=== PATIENT | female | born 1980 | race Caucasian/White ===

== ENCOUNTER 2016-10-25 10:16 | Inpatient (IN) | payer SELFPAY ==
[~2016-10-25] VITALS: Ht 160 cm; Wt 52.3 kg
[~2016-10-25 10:16] MED LIST: FERR325T PO; IRON28TA PO
[2016-10-25 10:17] VITALS: BP 149/79; PULSE 115; RESP 16; TEMP 98.1; O2SAT 98
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
[2016-10-25 12:12] VITALS: BP 122/76; PULSE 87; RESP 18; TEMP 98; O2SAT 96
[2016-10-25 12:33] LABS: AUTOMATED NEUTROPHIL # 9.6 TH/MM3 (1.8-7.7); BASOPHIL # 0.1 TH/MM3 (0-0.2); BASOPHIL % 0.5 % (0.0-2.0); EOSINOPHIL % 0.3 % (0.0-4.0); HEMATOCRIT 38.6 % (35.0-46.0); HEMO FLAGS DIFF FINAL; LYMPH % 14.6 % (9.0-44.0); LYMPHOCYTE # 1.8 TH/MM3 (1.0-4.8); MEAN CELL VOLUME 83.2 FL (80.0-100.0); MEAN CORPUSCULAR HEMOGLOBIN 27.7 PG (27.0-34.0); MEAN CORPUSCULAR HGB CONC 33.2 % (32.0-36.0); MONO % 6.6 % (0.0-8.0); PLATELET COUNT 235 TH/MM3 (150-450); RED BLOOD COUNT 4.64 MIL/MM3 (4.00-5.30); RED CELL DISTRIBUTION WIDTH 14.1 % (11.6-17.2); WHITE BLOOD COUNT 12.4 TH/MM3 (4.0-11.0)
[2016-10-25 13:03] LABS: ALT (GPT) 60 U/L (10-53); ANION GAP 8 MEQ/L (5-15); AST (GOT) 23 U/L (15-37); BLOOD UREA NITROGEN 11 MG/DL (7-18); CHLORIDE 101 MEQ/L (98-107); GLOMERULAR FILTRATION RATE 83 ML/MIN (>89); POTASSIUM 3.7 MEQ/L (3.5-5.1); SODIUM (NA) 137 MEQ/L (136-145)
[2016-10-25 13:06] LABS: ALKALINE PHOSPHATASE 99 U/L (45-117); TOTAL BILIRUBIN ADULT 0.6 MG/DL (0.2-1.0)
[2016-10-25 15:02] LABS: BLOOD, URINE NEG (NEG); COMMENT (UR) CULTURE INDICATED; CULTURE IF INDICATED CULTURE INDICATED; GLUCOSE,URINE NEG (NEG); KETONE, URINE 40 mg/dL (NEG); MUCUS URINE FEW /lpf (OCC); NITRITE,URINE NEG (NEG); SQUAMOUS EPITHELIAL CELL URINE 18 /hpf (0-5); URINE COLOR YELLOW (YELLW/STRAW)
[2016-10-25 17:56] LABS: AMPHETAMINE, URINE NEG (NEG); BARBITURATES, URINE NEG (NEG); COCAINE, URINE POS (NEG)
[2016-10-25 18:13] VITALS: BP 132/64; PULSE 68; RESP 18; O2SAT 98
[2016-10-25] MEDS ORDERED: CEPHALEXIN MONOHYDRATE 500 MG CAP PO ONE (19:15)
[2016-10-25 22:00] VITALS: BP 112/55; PULSE 55; RESP 20; O2SAT 98
[2016-10-26 02:09] VITALS: BP 113/66; PULSE 59; RESP 18
[2016-10-26 06:32] VITALS: BP 112/66; PULSE 59; RESP 18; O2SAT 99
[2016-10-26] MEDS: FLUoxetine HCL 20 MG CAP PO SCH (09:05)
[2016-10-26] MEDS ORDERED: diphenhydrAMINE HCL 50 MG/ML VIAL IM PRN (09:15)
[2016-10-26] MEDS ORDERED: ALUMINUM/MAGNESIUM/SIMETH 30 ML CUP PO PRN (09:15)
[2016-10-26] MEDS ORDERED: MAGNESIUM HYDROXIDE SUSP 30 ML CUP PO PRN (09:15)
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
[2016-10-26 10:24] VITALS: BP 128/83; PULSE 75; RESP 16; TEMP 98; O2SAT 98
[2016-10-26 12:27] LABS: BHCG SCREEN QUALITATIVE LESS THAN 1 MIU/ML (0-5)
--- NOTE | 2016-10-26 15:13 | PD.CONS ---
HPI Service [facility] Consult Requested By Psychiatry team Reason for Consult Medical management seizure, hypertension Primary Care Physician No Primary Care Physician Diagnoses: History of Present Illness Patient is a 36 year old white female with primary medical history of seizure, hypertension who came in to the ED with depression and suicidal thoughts. She is now admitted to inpatient psychiatry for further evaluation. Consulted for medical management. Patient states she was diagnosed with seizure in 2010. During such time, he was seeing Dr. Caputo in [place] and was placed on Janey beginning but states it did not work and switch her over to Klonopin 0.5 mg twice a day. Patient's last seizure reported was about a year ago. She also states that she was diagnosed with hypertension but is not taking any medications for it. States that when she came into the hospital and all throughout checking her vital signs her blood pressure remained within normal. In the ED, her urine showed moderate leukoesterase, 17 urine WBC, rare urine yeast, pending cultures. Denies pain and discomfort. Denies SOB/ dyspnea. Denies chestpain, palpitations, headaches, dizziness. Denies fevers, chills, n/v/d. Review of Systems Other Negative except for what is noted on history of present illness. Past Family Social History Allergies: Coded Allergies: Buspar (Verified Allergy, Severe, 10/25/16) Cogentin (Verified Allergy, Severe, hives, 10/25/16) Magnesium Sulfate (Verified Allergy, Severe, Vertigo, 10/25/16) [place] (Verified Allergy, Severe, hives, 10/25/16) Phenergan (Verified Allergy, Severe, 10/25/16) Risperdal (Verified Allergy, Severe, 10/25/16) Past Medical History Seizure HTN Depression CVA? Left-sided weakness residual Hypothyroidism Past Surgical History Appendectomy Cholecystectomy Heart catheter for mitral valve prolapse Tubal ligation Reported Medications Denies alcohol use Current smoker half a pack a day Substance use marijuana Active Ordered Medications Iron (Ferrous Sulfate) 325 Mg Tab 325 Mg PO DAILY 30 Days Family History ROM at age 50 for heart attack, grandmother at age 40 heart attack Social History Admits to alcohol use occasionally Current smoker half a pack a day Substance use marijuana Physical Exam Vital Signs Vital Signs Date Time Temp Pulse Resp B/P Pulse Ox O2 Delivery O2 Flow Rate FiO2 10/26/16 10:24 98.0 75 16 128/83 98 10/26/16 06:32 59 18 112/66 99 Room Air 10/26/16 02:09 59 18 113/66 10/25/16 22:00 55 20 112/55 98 Room Air 10/25/16 18:13 68 18 132/64 98 Physical Exam GENERAL: This is a well-nourished, well-developed patient, in no apparent distress. SKIN: No rashes, ecchymoses or lesions. Cool and dry. HEAD: Atraumatic. Normocephalic. No temporal or scalp tenderness. EYES: Pupils equal round and reactive. Extraocular motions intact. No scleral icterus. No injection or drainage. ENT: Nose without bleeding. Throat without erythema. Uvula midline. Airway patent. NECK: Trachea midline. No JVD or lymphadenopathy. Supple, nontender, no meningeal signs. CARDIOVASCULAR: Regular rate and rhythm without murmurs, gallops, or rubs. RESPIRATORY: Clear to auscultation. Breath sounds equal bilaterally. No wheezes , rales, or rhonchi. GASTROINTESTINAL: Abdomen soft, non-tender, nondistended. No guarding. Bowel sounds active 4 MUSCULOSKELETAL: Extremities without clubbing, cyanosis, or edema. No joint tenderness, effusion, or edema noted. No calf tenderness. Negative Homans sign bilaterally. NEUROLOGICAL: Awake and alert. Motor and sensory grossly within normal limits. Normal speech. Laboratory Date/Time Procedure Status Source Growth 10/25/16 14:10 Urine Culture - Preliminary Resulted Urine Random Urine IMMATURE GROWTH - REINCUBATE Result Diagram: 10/25/16 1158 10/25/16 1158 Assessment and Plan Problem List: (1) Major depressive disorder, recurrent severe without psychotic features ICD Code: F33.2 Status: Acute (2) HTN (hypertension) ICD Code: I10 Status: Chronic (3) Seizure disorder ICD Code: G40.909 Status: Chronic Assessment and Plan Patient is a 36 year old white female with primary medical history of seizure, hypertension who came in to the ED with depression and suicidal thoughts. She is now admitted to inpatient psychiatry for further evaluation. Consulted for medical management. Major depressive disorder - managed by psychiatry team HTN - vital signs trend since admit within normal. Continue to monitor. Patient not on any home meds for HTN. Tobacco use - counseled. Nicotine patch - Discuss significant family history of heart disease and smoking can put her at increased risk. We'll check lipid profile. Seizure disorder - start Klonopin 0.5 mg Q8hrs. Patient was on Klonopin per her outpatient neurologist. - Seizure precaution Urinary tract infection - DC Keflex. Start Macrobid. Follow-up cultures. Labs reviewed leukocytosis, WBC 12.4. Random glucose 159, EGFR 83, ALT 60. We' ll follow up repeat labs. CBC, CMP, hemoglobin A1c, lipid profile. Thank you for this consultation. We will follow patient with you. Written by Lorie Parra, acting as scribe for Dr. Chu on 10/26/16 at 13:11. The documentation accurately reflects the work performed [id number] by me on at 13:11 Code Status Full code Discussed Condition With Discussed with patient, nursing Lorie Poole Oct 26, 2016 15:13 Stanley Chu DO Oct 26, 2016 19:32
[2016-10-26] MEDS: NITROFURANTOIN MONOHYD MACROCR 100 MG CAP PO SCH (17:22)
[2016-10-26 19:00] VITALS: BP 140/79; PULSE 66; RESP 16; TEMP 98.5; O2SAT 99
[2016-10-26] MEDS: hydrOXYzine HCL 50 MG TAB PO PRN (19:43)
[2016-10-26] MEDS: ACETAMINOPHEN 325 MG TAB PO PRN (19:44)
[2016-10-26] MEDS: diphenhydrAMINE HCL 50 MG CAP PO PRN (20:41)
[2016-10-26] MEDS: PRAZOSIN HCL 1 MG CAP PO SCH (20:41)
[2016-10-26] MEDS: clonazePAM 0.5 MG TAB PO SCH (20:42)
[2016-10-26] MEDS ORDERED: CEPHALEXIN MONOHYDRATE 500 MG CAP PO SCH (21:00)
[2016-10-27] MEDS: clonazePAM 0.5 MG TAB PO SCH ×3 (06:07→21:00)
[2016-10-27 06:21] VITALS: BP 113/76; PULSE 71; RESP 18; TEMP 97.1
[2016-10-27 08:22] LABS: AUTOMATED NEUTROPHIL # 4.5 TH/MM3 (1.8-7.7); BASOPHIL # 0.1 TH/MM3 (0-0.2); BASOPHIL % 0.8 % (0.0-2.0); EOSINOPHIL # 0.4 TH/MM3 (0-0.4); EOSINOPHIL % 5.6 % (0.0-4.0); HEMATOCRIT 34.1 % (35.0-46.0); HEMO FLAGS DIFF FINAL; LYMPH % 25.1 % (9.0-44.0); MEAN CELL VOLUME 83.3 FL (80.0-100.0); MEAN CORPUSCULAR HEMOGLOBIN 27.9 PG (27.0-34.0); MEAN CORPUSCULAR HGB CONC 33.5 % (32.0-36.0); NEUT % 58.5 % (16.0-70.0); PLATELET COUNT 205 TH/MM3 (150-450); RED BLOOD COUNT 4.09 MIL/MM3 (4.00-5.30); RED CELL DISTRIBUTION WIDTH 13.7 % (11.6-17.2); WHITE BLOOD COUNT 7.8 TH/MM3 (4.0-11.0)
[2016-10-27 08:48] LABS: ALKALINE PHOSPHATASE 72 U/L (45-117); ALT (GPT) 30 U/L (10-53); ANION GAP 6 MEQ/L (5-15); AST (GOT) 8 U/L (15-37); BICARBONATE 27.7 MEQ/L (21.0-32.0); BLOOD UREA NITROGEN 6 MG/DL (7-18); CHLORIDE 104 MEQ/L (98-107); GLOMERULAR FILTRATION RATE 126 ML/MIN (>89); HDL CHOLESTEROL 57.1 MG/DL (40.0-60.0); LDL CHOLESTEROL 115 MG/DL (0-99); POTASSIUM 4.2 MEQ/L (3.5-5.1); SODIUM (NA) 138 MEQ/L (136-145); TOTAL BILIRUBIN ADULT 0.2 MG/DL (0.2-1.0)
[2016-10-27] MEDS: REMOVE OLD PATCH T-DERMAL SCH (09:00)
[2016-10-27] MEDS: NICOTINE 21 MG/24 HR PATCH T-DERMAL SCH (09:14)
[2016-10-27] MEDS: NITROFURANTOIN MONOHYD MACROCR 100 MG CAP PO SCH (09:15)
[2016-10-27] MEDS: FLUoxetine HCL 20 MG CAP PO SCH (09:15)
[2016-10-27] MEDS: ACETAMINOPHEN 325 MG TAB PO PRN (12:57)
--- NOTE | 2016-10-27 14:16 | HHI.PR ---
Blank section for building Urine culture all reviewed and reveals 50-100,000 mixed dominik- patient is asymptomatic will discontinue nitrofurantoin. Patient appears medically stable will sign off. If patient's condition changes or further assistance is needed please reconsult. Flor Carballo Oct 27, 2016 14:16
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
[2016-10-27 17:24] LABS: HEMOGLOBIN A1b 1.6 %; HEMOGLOBIN Ao 86.7 %; HEMOGLOBIN LA1C 1.7 %; HEMOGLOBIN P3 3.4 %
[2016-10-27] MEDS: PRAZOSIN HCL 1 MG CAP PO SCH (21:00)
[2016-10-27] MEDS: IBUPROFEN 600 MG TAB PO PRN (21:00)
[2016-10-27] MEDS: hydrOXYzine HCL 50 MG TAB PO PRN (22:55)
[2016-10-28 06:00] VITALS: BP 115/57; PULSE 57; RESP 16; TEMP 97.9; O2SAT 99
[2016-10-28 07:14] LABS: HEMATOCRIT 34.7 % (35.0-46.0); REVIEW FLAG FINAL
[2016-10-28] MEDS: clonazePAM 0.5 MG TAB PO SCH ×3 (08:40→20:43)
[2016-10-28] MEDS: REMOVE OLD PATCH T-DERMAL SCH (08:40)
[2016-10-28] MEDS: NICOTINE 21 MG/24 HR PATCH T-DERMAL SCH (08:40)
[2016-10-28] MEDS: FLUoxetine HCL 20 MG CAP PO SCH (08:40)
[2016-10-28] MEDS: IBUPROFEN 600 MG TAB PO PRN ×2 (13:14→19:55)
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
[2016-10-28 17:01] LABS: BACTERIA, URINE RARE /hpf; BLOOD, URINE NEG (NEG); COMMENT (UR) CULTURE INDICATED; CULTURE IF INDICATED CULTURE INDICATED; GLUCOSE,URINE NEG (NEG); KETONE, URINE NEG (NEG); MUCUS URINE FEW /lpf (OCC); NITRITE,URINE NEG (NEG); SQUAMOUS EPITHELIAL CELL URINE 26 /hpf (0-5); URINE COLOR LIGHT-YELLOW (YELLW/STRAW)
[2016-10-28 18:43] VITALS: BP 129/83; PULSE 74; RESP 16; TEMP 98.1; O2SAT 100
[2016-10-28] MEDS: hydrOXYzine HCL 50 MG TAB PO PRN (19:55)
[2016-10-28] MEDS: PRAZOSIN HCL 1 MG CAP PO SCH (20:43)
[2016-10-28] MEDS: diphenhydrAMINE HCL 50 MG CAP PO PRN (20:43)
[2016-10-29] MEDS: diphenhydrAMINE HCL 50 MG CAP PO PRN ×2 (03:18→22:13)
[2016-10-29 05:00] VITALS: BP 98/64; PULSE 61; RESP 16; TEMP 97.6; O2SAT 99
[2016-10-29] MEDS: REMOVE OLD PATCH T-DERMAL SCH (09:00)
[2016-10-29] MEDS: clonazePAM 0.5 MG TAB PO SCH ×3 (09:05→20:50)
[2016-10-29] MEDS: NICOTINE 21 MG/24 HR PATCH T-DERMAL SCH (09:05)
[2016-10-29] MEDS: FLUoxetine HCL 20 MG CAP PO SCH (09:05)
[2016-10-29] MEDS: IBUPROFEN 600 MG TAB PO PRN (12:19)
--- NOTE | 2016-10-29 15:06 | HHI.PYPN ---
Subjective Remarks Patient seen and examined. Chart reviewed. Case discussed with nursing staff. No behavioral problems noted. On my examination today, patient seems in better spirits today versus yesterday but says that her moods have been a little bit "all over the place." She generally feels improved but says that she is somewhat anxious regarding disposition location. She says that she has spoken with the counselor and is hopeful there might be some way that she could be reunited with her family, who live in [facility]. Denies side effects from medications. Review of Systems Other Complains of some ongoing dysuria. Requests to be empirically treated for UTI. Says that she has done well with Cipro in the past. No other physical complaints. Objective Alert: Yes [place]: Person (once again O x 3) Mood: Depressed (again improving) Affect: Other (full and reactive) Memory Intact: Comment (remains intact) Hallucinations: Other (No AVH) Delusions: No Delusion Type: Other (no delusional material) Suicidal: Ideation (No SI) Homicidal: Ideation (No HI) Insight/Judgement Fair Remarks Thought process linear. No abnormal motor movements noted. Labs Test 10/28/16 15:45 Urine Color LIGHT-YELLOW Urine Turbidity CLOUDY Urine pH 7.0 Urine Specific [place] 1.009 Urine Protein NEG mg/dL Urine Glucose (UA) NEG mg/dL Urine Ketones NEG mg/dL Urine Occult Blood NEG Urine Nitrite NEG Urine Bilirubin NEG Urine Urobilinogen LESS THAN 2.0 MG/DL Urine Leukocyte Esterase SMALL Urine RBC LESS THAN 1 /hpf Urine WBC 11 /hpf Urine Squamous Epithelial 26 /hpf Cells Urine Amorphous Sediment RARE Urine Bacteria RARE /hpf Urine Mucus FEW /lpf Microscopic Urinalysis Comment CULTURE INDICATED Date/Time Procedure Status Source Growth 10/28/16 15:45 Urine Culture - Preliminary Resulted Urine Clean Catch IMMATURE GROWTH - REINCUBATE 10/25/16 14:10 Urine Culture - Final Complete Urine Random Urine 50-100,000 CFU/ML MIXED DOMINIK... Labs reviewed. Repeat urinalysis reveals 11 white blood cells and small leukocyte esterase. Repeat urine culture pending. Original urine culture grew out mixed dominik. Vitals/IOs Vital Signs Date Time Temp Pulse Resp B/P Pulse Ox O2 Delivery O2 Flow Rate FiO2 10/29/16 05:00 97.6 61 16 98/64 99 10/26/16 06:32 Room Air Assessment & Plan Problem List: (1) Major depressive disorder, recurrent severe without psychotic features ICD Code: F33.2 (2) Post-traumatic stress disorder, chronic ICD Code: F43.12 (3) Other psychoactive substance dependence, uncomplicated ICD Code: F19.20 Assessment & Plan Continue current psychotropics as ordered. I will prescribe a 3 day course of Cipro pending repeat urine cultures. Continue other medications include care as ordered. Justification for Cont. Inpt. Risk for decompensation Discharge Planning Case discussed with counselor. Request HC Surrog/Guard Advoc?: No Parker Burgos MD Oct 29, 2016 15:06
[2016-10-29 18:23] VITALS: BP 145/77; PULSE 80; RESP 17; TEMP 98.8; O2SAT 98
[2016-10-29] MEDS: PRAZOSIN HCL 1 MG CAP PO SCH (20:50)
[2016-10-29] MEDS: ATORVASTATIN 20 MG TAB PO SCH (20:50)
[2016-10-29] MEDS: CIPROFLOXACIN 250 MG TAB PO SCH (22:13)
[2016-10-29] MEDS: hydrOXYzine HCL 50 MG TAB PO PRN (22:15)
[2016-10-30 05:11] VITALS: BP 102/62; PULSE 58; RESP 16; TEMP 97.8
[2016-10-30] MEDS: CIPROFLOXACIN 250 MG TAB PO SCH ×2 (08:47→20:39)
[2016-10-30] MEDS: REMOVE OLD PATCH T-DERMAL SCH (08:47)
[2016-10-30] MEDS: clonazePAM 0.5 MG TAB PO SCH ×3 (08:47→20:39)
[2016-10-30] MEDS: NICOTINE 21 MG/24 HR PATCH T-DERMAL SCH (08:47)
[2016-10-30] MEDS: FLUoxetine HCL 20 MG CAP PO SCH (08:48)
[2016-10-30] MEDS: hydrOXYzine HCL 50 MG TAB PO PRN ×2 (14:42→23:11)
--- NOTE | 2016-10-30 15:34 | HHI.PYPN ---
Subjective Remarks Patient seen and examined. Chart reviewed. Case discussed with nursing staff. On my examination today patient is in fair spirits. She has spoken with the counselor and is hopeful that she might be able to reconnect with her grandmother in [facility]. She notes that her grandmother also cares for her 8 and 17-year-old daughters and so this would mean reuniting with them as well. She does admit that she has burned some bridges with her family in the [facility] because of her prior substance use and so is a little bit anxious that her grandmother might not accept her back. She reports that her psychotropic medications are working well without side effects, and she is pleased with the current doses. No suicidal or homicidal ideation voiced. Review of Systems Other No physical complaints today Objective Alert: Yes [place]: Person (O x 3) Mood: Calm Affect: Other (remains fairly full and reactive but a little anxious) Memory Intact: Comment (remains intact) Hallucinations: Other (No AVH) Delusions: No Delusion Type: Other (no delusions) Suicidal: Ideation (No SI) Homicidal: Ideation (No HI) Insight/Judgement Fair Remarks Thought processes linear Labs Date/Time Procedure Status Source Growth 10/28/16 15:45 Urine Culture - Final Complete Urine Clean Catch 50-100,000 CFU/ML MIXED GRAM POSITIVE... Repeat urinalysis and culture again reveals mixed dominik, most likely contaminants. However, given patient's complaints of dysuria yesterday, I will treat empirically UTI. Vitals/IOs Vital Signs Date Time Temp Pulse Resp B/P Pulse Ox O2 Delivery O2 Flow Rate FiO2 10/30/16 05:11 97.8 58 16 102/62 10/29/16 18:23 98 Assessment & Plan Problem List: (1) Major depressive disorder, recurrent severe without psychotic features ICD Code: F33.2 (2) Post-traumatic stress disorder, chronic ICD Code: F43.12 (3) Other psychoactive substance dependence, uncomplicated ICD Code: F19.20 Assessment & Plan Continue current psychotropics as ordered. Continue other medications and care as ordered. Justification for Cont. Inpt. Risk for decompensation Discharge Planning Monitor over the weekend. Anticipate discharge beginning of next week barring some clinical worsening. Request HC Surrog/Guard Advoc?: No Parker Burgos MD Oct 30, 2016 15:34
[2016-10-30 18:59] VITALS: BP 117/2; PULSE 72; RESP 17; TEMP 98.1; O2SAT 100
[2016-10-30] MEDS: PRAZOSIN HCL 1 MG CAP PO SCH (20:39)
[2016-10-30] MEDS: ATORVASTATIN 20 MG TAB PO SCH (20:39)
[2016-10-30] MEDS: diphenhydrAMINE HCL 50 MG CAP PO PRN (20:40)
[2016-10-31] MEDS: REMOVE OLD PATCH T-DERMAL SCH (09:00)
[2016-10-31] MEDS: NICOTINE 21 MG/24 HR PATCH T-DERMAL SCH (09:06)
[2016-10-31] MEDS: CIPROFLOXACIN 250 MG TAB PO SCH ×2 (09:06→20:36)
[2016-10-31] MEDS: FLUoxetine HCL 20 MG CAP PO SCH (09:06)
[2016-10-31] MEDS: clonazePAM 0.5 MG TAB PO SCH ×3 (09:06→20:36)
--- NOTE | 2016-10-31 15:48 | HHI.PYPN ---
Subjective Remarks Patient was seen and case discussed with nursing. Patient is pleasant and cooperative to exam. Describes her reason for admission this a plan to kill herself. Describes her mood is "pretty good." However she later says all over the place. Denies suicidal or homicidal ideation. Affect is blunted. Complaining of nightmares and asking for higher dose of Minipress Objective Alert: Yes [place]: Person (O x 3) Mood: Calm Affect: Other (remains fairly full and reactive but a little anxious) Memory Intact: Comment (remains intact) Hallucinations: Other (No AVH) Delusions: No Delusion Type: Other (no delusions) Suicidal: Ideation (No SI) Homicidal: Ideation (No HI) Insight/Judgement Poor Labs Date/Time Procedure Status Source Growth 10/28/16 15:45 Urine Culture - Final Complete Urine Clean Catch 50-100,000 CFU/ML MIXED GRAM POSITIVE... Vitals/IOs Vital Signs Date Time Temp Pulse Resp B/P Pulse Ox O2 Delivery O2 Flow Rate FiO2 10/30/16 18:59 98.1 72 17 117/2 100 Assessment & Plan Problem List: (1) Major depressive disorder, recurrent severe without psychotic features ICD Code: F33.2 (2) Post-traumatic stress disorder, chronic ICD Code: F43.12 (3) Other psychoactive substance dependence, uncomplicated ICD Code: F19.20 Assessment & Plan Increase Minipress to 2 mg Justification for Cont. Inpt. Patient will decompensate in a less restrictive setting Request HC Surrog/Guard Advoc?: No Ren Pardo DO Oct 31, 2016 15:48
[2016-10-31] MEDS: hydrOXYzine HCL 50 MG TAB PO PRN (16:22)
[2016-10-31 18:47] VITALS: BP 162/89; PULSE 60; RESP 16; TEMP 98.3; O2SAT 100
[2016-10-31 19:05] VITALS: BP 168/102; PULSE 87
[2016-10-31] MEDS ORDERED: cloNIDine HCL 0.2 MG TAB PO ONE (19:30)
[2016-10-31] MEDS: ACETAMINOPHEN 325 MG TAB PO PRN (20:35)
[2016-10-31] MEDS: ATORVASTATIN 20 MG TAB PO SCH (20:36)
[2016-10-31] MEDS ORDERED: PRAZOSIN HCL 1 MG CAP PO SCH (21:00)
[2016-10-31 21:08] VITALS: BP 100/71; PULSE 74
[2016-11-01 06:34] VITALS: BP 94/56; PULSE 55; RESP 16; TEMP 98.1; O2SAT 100
[2016-11-01] MEDS ORDERED: cloNIDine HCL 0.1 MG TAB PO PRN (08:00)
[2016-11-01] MEDS: CIPROFLOXACIN 250 MG TAB PO SCH (08:10)
[2016-11-01] MEDS: FLUoxetine HCL 20 MG CAP PO SCH (08:10)
[2016-11-01] MEDS: clonazePAM 0.5 MG TAB PO SCH ×3 (08:10→20:55)
[2016-11-01] MEDS: NICOTINE 21 MG/24 HR PATCH T-DERMAL SCH (08:11)
[2016-11-01] MEDS: REMOVE OLD PATCH T-DERMAL SCH (08:30)
[2016-11-01] MEDS ORDERED: hydrALAZINE HCL 10 MG TAB PO PRN (09:45)
--- NOTE | 2016-11-01 11:21 | HHI.PR ---
Subjective Remarks Reconsult for BP Patient reports that last night BP elevated associated with headache. Patient denies chest pain, SOB, N/V/D. Offers no complaints at this time Objective Vitals Vital Signs Date Time Temp Pulse Resp B/P Pulse Ox O2 Delivery O2 Flow Rate FiO2 11/01/16 06:34 98.1 55 16 94/56 100 10/31/16 21:08 74 100/71 10/31/16 19:05 87 168/102 10/31/16 18:47 98.3 60 16 162/89 100 Result Diagram: 10/28/16 0618 Objective Remarks GENERAL: This is a well-nourished, well-developed patient, in no apparent distress. SKIN: No rashes, ecchymoses or lesions. Cool and dry. HEAD: Atraumatic. Normocephalic. No temporal or scalp tenderness. EYES: Pupils equal round and reactive. Extraocular motions intact. No scleral icterus. No injection or drainage. ENT: Nose without bleeding. Throat without erythema. Uvula midline. Airway patent. NECK: Trachea midline. No JVD or lymphadenopathy. Supple, nontender, no meningeal signs. CARDIOVASCULAR: Regular rate and rhythm without murmurs, gallops, or rubs. RESPIRATORY: Clear to auscultation. Breath sounds equal bilaterally. No wheezes , rales, or rhonchi. GASTROINTESTINAL: Abdomen soft, non-tender, nondistended. No guarding. Bowel sounds active 4 MUSCULOSKELETAL: Extremities without clubbing, cyanosis, or edema. No joint tenderness, effusion, or edema noted. No calf tenderness. Negative Homans sign bilaterally. NEUROLOGICAL: Awake and alert. Motor and sensory grossly within normal limits. Normal speech. A/P Problem List: (1) Major depressive disorder, recurrent severe without psychotic features ICD Code: F33.2 Status: Acute (2) HTN (hypertension) ICD Code: I10 Status: Chronic (3) Seizure disorder ICD Code: G40.909 Status: Chronic Assessment and Plan Patient is a 36 year old white female with primary medical history of seizure, hypertension who came in to the ED with depression and suicidal thoughts. She is now admitted to inpatient psychiatry for further evaluation. Consulted for medical management. Major depressive disorder - managed by psychiatry team HTN - vital signs trend since admit reviewed. patient had insolated HTN event will start hydralazine PRN Patient will not tolerate daily antihypertensive as she has also had periods of hypotension Tobacco use - counseled. Nicotine patch - Discuss significant family history of heart disease and smoking can put her at increased risk. We'll check lipid profile. Seizure disorder - start Klonopin 0.5 mg Q8hrs. Patient was on Klonopin per her outpatient neurologist. - Seizure precaution Hyperlipidemia- LDL 115, family history of cardiac disease Lipitor 20 mg QHS Urinary tract infection - Cipro per psych team stop date 11/01/2016 Urine culture reviewed and reveal 50-100,000 mixed gram pos dominik Discussed plan of care with patient, RN and Flor Roman Nov 01, 2016 11:20 am Stanley Chu DO Nov 01, 2016 12:57 pm
[2016-11-01] MEDS: hydrOXYzine HCL 50 MG TAB PO PRN (13:15)
--- NOTE | 2016-11-01 14:53 | HHI.PYPN ---
Subjective Remarks Patient was seen and case discussed with nursing. Patient had an episode of hypertension yesterday and today her blood pressure has been low at 94/56. She is followed by the medical team was adjusting her hypertensive medication. Patient was complaining of nightmares yesterday and we increased her prazosin to 2 mg but she did not receive it. Given that it can affect blood pressures we will hold that for now. Patient does not have a headache is not physically. She says she is feeling more anxious today. She had a visited today. Compliant with medications. Denies suicidal ideations intent or plan Objective Alert: Yes [place]: Person (O x 3) Mood: Calm Affect: Other (remains fairly full and reactive but a little anxious) Memory Intact: Comment (remains intact) Hallucinations: Other (No AVH) Delusions: No Delusion Type: Other (no delusions) Suicidal: Ideation (No SI) Homicidal: Ideation (No HI) Insight/Judgement Poor Labs Date/Time Procedure Status Source Growth 10/28/16 15:45 Urine Culture - Final Complete Urine Clean Catch 50-100,000 CFU/ML MIXED GRAM POSITIVE... Vitals/IOs Vital Signs Date Time Temp Pulse Resp B/P Pulse Ox O2 Delivery O2 Flow Rate FiO2 11/01/16 06:34 98.1 55 16 94/56 100 Assessment & Plan Problem List: (1) Major depressive disorder, recurrent severe without psychotic features ICD Code: F33.2 (2) Post-traumatic stress disorder, chronic ICD Code: F43.12 (3) Other psychoactive substance dependence, uncomplicated ICD Code: F19.20 Assessment & Plan Hold prazosin given labile blood pressure. Vital signs every 6 hours. Continue treatment by medical team Justification for Cont. Inpt. Patient will decompensate in a less restrictive setting Request HC Surrog/Guard Advoc?: No Ren Pardo DO Nov 01, 2016 14:53
[2016-11-01 19:07] VITALS: BP 122/82; PULSE 59; RESP 18; TEMP 97.4; O2SAT 100
[2016-11-01 20:14] VITALS: BP 123/62; PULSE 65; RESP 17; TEMP 97.3; O2SAT 99
[2016-11-01] MEDS: ATORVASTATIN 20 MG TAB PO SCH (20:55)
[2016-11-01] MEDS: diphenhydrAMINE HCL 50 MG CAP PO PRN (21:39)
[2016-11-01] MEDS: IBUPROFEN 600 MG TAB PO PRN (21:40)
[2016-11-02 05:23] VITALS: BP 113/63; PULSE 63; RESP 15; TEMP 97.9; O2SAT 97
[2016-11-02] MEDS: NICOTINE 21 MG/24 HR PATCH T-DERMAL SCH (08:42)
[2016-11-02] MEDS: FLUoxetine HCL 20 MG CAP PO SCH (08:42)
[2016-11-02] MEDS: clonazePAM 0.5 MG TAB PO SCH ×3 (08:42→20:38)
[2016-11-02] MEDS: REMOVE OLD PATCH T-DERMAL SCH (08:42)
[2016-11-02] MEDS: hydrOXYzine HCL 50 MG TAB PO PRN (10:17)
--- NOTE | 2016-11-02 11:37 | HHI.PR ---
Subjective Remarks Follow up BP No further episodes of hypertension or headache. Patient denies chest pain, SOB , N/V/D. Offers no complaints at this time Objective Vitals Vital Signs Date Time Temp Pulse Resp B/P Pulse Ox O2 Delivery O2 Flow Rate FiO2 11/02/16 05:23 97.9 63 15 113/63 97 11/01/16 20:14 97.3 65 17 123/62 99 11/01/16 19:07 97.4 59 18 122/82 100 Objective Remarks GENERAL: This is a well-nourished, well-developed patient, in no apparent distress. SKIN: No rashes, ecchymoses or lesions. Cool and dry. HEAD: Atraumatic. Normocephalic. No temporal or scalp tenderness. EYES: Pupils equal round and reactive. Extraocular motions intact. No scleral icterus. No injection or drainage. ENT: Nose without bleeding. Throat without erythema. Uvula midline. Airway patent. NECK: Trachea midline. No JVD or lymphadenopathy. Supple, nontender, no meningeal signs. CARDIOVASCULAR: Regular rate and rhythm without murmurs, gallops, or rubs. RESPIRATORY: Clear to auscultation. Breath sounds equal bilaterally. No wheezes , rales, or rhonchi. GASTROINTESTINAL: Abdomen soft, non-tender, nondistended. No guarding. Bowel sounds active 4 MUSCULOSKELETAL: Extremities without clubbing, cyanosis, or edema. No joint tenderness, effusion, or edema noted. No calf tenderness. Negative Homans sign bilaterally. NEUROLOGICAL: Awake and alert. Motor and sensory grossly within normal limits. Normal speech. A/P Problem List: (1) Major depressive disorder, recurrent severe without psychotic features ICD Code: F33.2 Status: Acute (2) HTN (hypertension) ICD Code: I10 Status: Chronic (3) Seizure disorder ICD Code: G40.909 Status: Chronic Assessment and Plan Patient is a 36 year old white female with primary medical history of seizure, hypertension who came in to the ED with depression and suicidal thoughts. She is now admitted to inpatient psychiatry for further evaluation. Consulted for medical management. Major depressive disorder - managed by psychiatry team HTN - vital signs trend since admit reviewed. patient had insolated HTN event Continue hydralazine PRN Patient will not tolerate daily antihypertensive as she has also had periods of hypotension. Strict monitoring hx TIA/CVA check EKG and CXR Chest x-ray and EKG ordered and pending Tobacco use - counseled. Nicotine patch - Discuss significant family history of heart disease and smoking can put her at increased risk. Seizure disorder - start Klonopin 0.5 mg Q8hrs. Patient was on Klonopin per her outpatient neurologist. - Seizure precaution Hyperlipidemia- LDL 115, family history of cardiac disease Lipitor 20 MG qhs Urinary tract infection - Cipro per psych team stop date 11/01/2016 Urine culture reviewed and reveal 50-100,000 mixed gram pos dominik Discussed plan of care with patient, RN Written by Flor Carballo, acting as scribe for Dr. Martinez on 11/02/16 at 11:36. The documentation accurately reflects the work performed [id number] by me on at [id number] Flor Carballo Nov 02, 2016 11:37 Eamon Martinez MD Nov 02, 2016 14:47
--- NOTE | 2016-11-02 13:48 | EKG ---
Date Performed: 11/02/2016 Time Performed: 12:00:47 PTAGE: 36 years EKG: Sinus rhythm NORMAL ECG PREVIOUS TRACING : 09/30/2015 20.52 No significant change from previous tracing noted. DOCTOR: Faisal Perez Interpretating Date/Time 11/02/2016 13:46:53
--- NOTE | 2016-11-02 14:00 | HHI.PYPN ---
Subjective Remarks Patient seen and examined. Chart reviewed. Case discussed with nursing staff. No behavioral problems noted. On my examination today, the patient is in fairly good spirits. She says that the scheduled psychotropic medications and Atarax as needed are helping especially with her anxiety. She reports that she has made some calls and hopes to live with a friend of hers after the first of the month. Denies side effects from medications. Review of Systems Other No physical complaints today Objective Alert: Yes [place]: Person (once again O x 3) Mood: Calm Affect: Other (full and reactive) Memory Intact: Comment (remains intact) Hallucinations: Other (No AVH) Delusions: No Delusion Type: Other (no delusional material) Suicidal: Ideation (no SI voiced) Homicidal: Ideation (no HI voiced) Insight/Judgement Fair Remarks No abnormal motor movements noted Labs Date/Time Procedure Status Source Growth 10/28/16 15:45 Urine Culture - Final Complete Urine Clean Catch 50-100,000 CFU/ML MIXED GRAM POSITIVE... Labs reviewed Vitals/IOs Vital Signs Date Time Temp Pulse Resp B/P Pulse Ox O2 Delivery O2 Flow Rate FiO2 11/02/16 05:23 97.9 63 15 113/63 97 Assessment & Plan Problem List: (1) Major depressive disorder, recurrent severe without psychotic features ICD Code: F33.2 (2) Post-traumatic stress disorder, chronic ICD Code: F43.12 (3) Other psychoactive substance dependence, uncomplicated ICD Code: F19.20 Assessment & Plan Presenting psychiatric symptomatology is improving with psychotropic medications. Continue current psychotropics as ordered. Continue other medications and care as ordered. Justification for Cont. Inpt. Risk for decompensation Discharge Planning Pending stabilization Request HC Surrog/Guard Advoc?: No Parker Burgos MD Nov 02, 2016 14:00
--- NOTE | 2016-11-02 14:37 | RADRPT ---
EXAM DATE/TIME: 11/02/2016 14:15 [facility] COMPARISON: CHEST SINGLE AP, September 30, 2015, 20:55. INDICATIONS : Stroke MEDICAL HISTORY : Stroke. Tia, mitral valve prolapse SURGICAL HISTORY : None. ENCOUNTER: Initial ACUITY: 1 day PAIN SCORE: 2/10 LOCATION: Bilateral chest FINDINGS: A single view of the chest demonstrates the lungs to be symmetrically aerated without evidence of mas s, infiltrate or effusion. The cardiomediastinal contours are unremarkable. Osseous structures are intact. CONCLUSION: 1. No acute cardiopulmonary disease. Parker Bautista MD on November 02, 2016 at 14:36 Board Certified Radiologist. This report was verified electronically.
[2016-11-02] MEDS: IBUPROFEN 600 MG TAB PO PRN (17:33)
[2016-11-02 19:49] VITALS: BP 120/65; PULSE 69; RESP 16; TEMP 98.4; O2SAT 97
[2016-11-02] MEDS: ATORVASTATIN 20 MG TAB PO SCH (20:38)
[2016-11-02] MEDS: PADIMATE (CHAPSTICK) 4.5 GM TUBE TOPICAL PRN (20:49)
[2016-11-02] MEDS: diphenhydrAMINE HCL 50 MG CAP PO PRN (20:49)
[2016-11-03 05:58] VITALS: BP 120/56; PULSE 55; RESP 16; TEMP 98
[2016-11-03] MEDS: REMOVE OLD PATCH T-DERMAL SCH (09:00)
[2016-11-03] MEDS: clonazePAM 0.5 MG TAB PO SCH ×3 (09:11→20:27)
[2016-11-03] MEDS: NICOTINE 21 MG/24 HR PATCH T-DERMAL SCH (09:11)
[2016-11-03] MEDS: FLUoxetine HCL 20 MG CAP PO SCH (09:11)
--- NOTE | 2016-11-03 10:09 | HHI.PYPN ---
Subjective Remarks Patient seen and examined. Chart reviewed. Case discussed in treatment team. Reviewing the electronic medical record somewhat more I note that the patient's prazosin was initially titrated and then placed on hold over the weekend because of hypotension. Patient reports been off of this medication she has noticed increase in her anxiety and also recurrence of the traumatic nightmares. She would prefer to remain off the prazosin and we discussed alternatives for the management of both of these symptoms. After a discussion of her options in this regard we settle on a trial of gabapentin which will likely have less hypotensive effect and has seen some limited use in the management of traumatic nightmares, although I emphasized to patient that its use for both anxiety and for traumatic nightmares is off label. Mood is good today. Patient denies any suicidal ideation. Denies side effects from medications. Review of Systems Other No physical complaints today Objective Alert: Yes [place]: Person (oriented 3) Mood: Calm Affect: Euthymic Memory Intact: Comment (intact on clinical exam) Hallucinations: Other (No AVH) Delusions: No Delusion Type: Other (no delusions) Suicidal: Ideation (denies SI) Homicidal: Ideation (no HI voiced) Insight/Judgement Fair Remarks Thought process linear. Steady gait and station. Labs Labs reviewed. No new labs. Vitals/IOs Vital Signs Date Time Temp Pulse Resp B/P Pulse Ox O2 Delivery O2 Flow Rate FiO2 11/03/16 05:58 98.0 55 16 120/56 11/02/16 19:49 97 Assessment & Plan Problem List: (1) Major depressive disorder, recurrent severe without psychotic features ICD Code: F33.2 (2) Post-traumatic stress disorder, chronic ICD Code: F43.12 (3) Other psychoactive substance dependence, uncomplicated ICD Code: F19.20 Assessment & Plan Add gabapentin 300 mg 3 times daily. Continue other psychotropics as ordered. Continue other medications and care as ordered. Justification for Cont. Inpt. Final discharge planning Discharge Planning Monitor overnight. Anticipate discharge tomorrow. Case discussed with counselor. Request HC Surrog/Guard Advoc?: No Parker Burgos MD Nov 03, 2016 10:09
[2016-11-03] MEDS: GABAPENTIN 300 MG CAP PO SCH ×2 (13:16→18:56)
[2016-11-03] MEDS: PADIMATE (CHAPSTICK) 4.5 GM TUBE TOPICAL PRN ×2 (13:17→20:27)
--- NOTE | 2016-11-03 15:52 | HHI.PR ---
Addendum to Inpatient Note Additional Information medically stable unremarkable CXR and EKG with normal BP. Will sign off Eamon Martinez MD Nov 03, 2016 15:52
[2016-11-03] MEDS: ATORVASTATIN 20 MG TAB PO SCH (20:28)
[2016-11-03 20:45] VITALS: BP 125/84; PULSE 82; RESP 16; TEMP 98.9; O2SAT 99
[2016-11-04 05:59] VITALS: BP 101/69; PULSE 63; RESP 16; TEMP 97.2; O2SAT 100
[2016-11-04] MEDS ORDERED: NEUR300C PO (08:39)
[2016-11-04] MEDS ORDERED: FLUO20CA4 PO (08:39)
[2016-11-04] MEDS ORDERED: LIPI20TA PO (08:39)
[2016-11-04] MEDS ORDERED: CLON.5 PO (08:39)
[2016-11-04] MEDS ORDERED: HYDR50TA94 PO (08:39)
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
[2016-11-04] MEDS: REMOVE OLD PATCH T-DERMAL SCH (09:00)
[2016-11-04] MEDS: clonazePAM 0.5 MG TAB PO SCH (09:06)
[2016-11-04] MEDS: GABAPENTIN 300 MG CAP PO SCH (09:06)
[2016-11-04] MEDS: FLUoxetine HCL 20 MG CAP PO SCH (09:06)
[2016-11-04] MEDS: NICOTINE 21 MG/24 HR PATCH T-DERMAL SCH (09:07)
== END 2016-11-04 12:20 | disposition home or self-care (01) | DRG 885 ==
LOC: NEPJ 10:16 → NEDA 10-26 09:06 → H260 10-26 10:20
PROVIDERS: ADMIT Psychiatry & Neurology Psychiatry; ATTEND Psychiatry & Neurology Psychiatry
DX: F33.2 Major depressive disorder, recurrent severe without psychotic features (principal); R45.851 Suicidal ideations; G40.909 Epilepsy, unspecified, not intractable, without status epilepticus; F43.12 Post-traumatic stress disorder, chronic; F19.20 Other psychoactive substance dependence, uncomplicated; I10 Essential (primary) hypertension; R82.99 Other abnormal findings in urine; R51 Headache; F17.210 Nicotine dependence, cigarettes, uncomplicated; E78.5 Hyperlipidemia, unspecified; Z88.8 Allergy status to other drugs, medicaments and biological substances; Z62.810 Personal history of physical and sexual abuse in childhood
CPT/HCPCS: 71010; 80053; 80061; 80307; 80320; 81001; 83036; 84443; 84703; 85014; 85018; 85025; 87086; 93005; 99284; Q0163

== ENCOUNTER 2016-11-08 19:39 | Inpatient (IN) | payer OTHER ==
[~2016-11-08] VITALS: Ht 162.6 cm; Wt 65.0 kg
[~2016-11-08 19:39] MED LIST changes: +CLON.5 PO; -FERR325T PO; +FLUO20CA4 PO; +HYDR50TA94 PO; +LIPI20TA PO; +NEUR300C PO
[2016-11-08 19:49] VITALS: BP 169/105; PULSE 98; RESP 22; TEMP 98.9; O2SAT 96
[2016-11-08] MEDS ORDERED: FERR83TA PO (19:53)
[2016-11-08 20:21] VITALS: O2SAT 96
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
[2016-11-08 21:03] LABS: AUTOMATED NEUTROPHIL # 7.7 TH/MM3 (1.8-7.7); BASOPHIL # 0.1 TH/MM3 (0-0.2); BASOPHIL % 0.5 % (0.0-2.0); EOSINOPHIL # 0.3 TH/MM3 (0-0.4); HEMATOCRIT 34.9 % (35.0-46.0); HEMO FLAGS DIFF FINAL; LYMPH % 19.7 % (9.0-44.0); LYMPHOCYTE # 2.2 TH/MM3 (1.0-4.8); MEAN CELL VOLUME 81.8 FL (80.0-100.0); MEAN CORPUSCULAR HEMOGLOBIN 27.9 PG (27.0-34.0); MEAN CORPUSCULAR HGB CONC 34.1 % (32.0-36.0); MONO % 8.3 % (0.0-8.0); NEUT % 68.5 % (16.0-70.0); PLATELET COUNT 120 TH/MM3 (150-450); RED BLOOD COUNT 4.27 MIL/MM3 (4.00-5.30); WHITE BLOOD COUNT 11.3 TH/MM3 (4.0-11.0)
[2016-11-08 21:08] LABS: BLOOD, URINE LARGE (NEG); COMMENT (UR) CULT NOT INDICATED; CULTURE IF INDICATED CULT NOT INDICATED; GLUCOSE,URINE NEG (NEG); KETONE, URINE NEG (NEG); NITRITE,URINE NEG (NEG); SQUAMOUS EPITHELIAL CELL URINE 1 /hpf (0-5)
[2016-11-08 21:11] LABS: ANION GAP 6 MEQ/L (5-15)
[2016-11-08 21:14] LABS: ALKALINE PHOSPHATASE 126 U/L (45-117); ALT (GPT) 78 U/L (10-53); APTT (PATIENT) 24.3 SEC (24.3-30.1); AST (GOT) 49 U/L (15-37); BICARBONATE 29.8 MEQ/L (21.0-32.0); BLOOD UREA NITROGEN 4 MG/DL (7-18); CHLORIDE 105 MEQ/L (98-107); GLOMERULAR FILTRATION RATE 106 ML/MIN (>89); POTASSIUM 3.8 MEQ/L (3.5-5.1); PROTHROMBIN TIME - PATIENT 11.1 SEC (9.8-11.6); SODIUM (NA) 141 MEQ/L (136-145); TOTAL BILIRUBIN ADULT 0.2 MG/DL (0.2-1.0)
[2016-11-08 21:32] LABS: URINE COLOR LIGHT-RED (YELLW/STRAW)
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
[2016-11-08] MEDS ORDERED: IOHEXOL 350 MG/ML 10 ML VIAL (for RAD DIAG) IV ONE (21:57)
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
[2016-11-08] MEDS ORDERED: MORPHINE SULFATE 8 MG/ML INJ IV PUSH ONE (23:30)
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
[2016-11-08 23:44] VITALS: BP 130/74; PULSE 81; RESP 16; O2SAT 96
[2016-11-09] MEDS ORDERED: ONDANSETRON HCL 4 MG/2 ML VIAL IV PRN
[2016-11-09] MEDS ORDERED: MAGNESIUM HYDROXIDE SUSP 30 ML CUP PO PRN
[2016-11-09] MEDS ORDERED: CHLORHEXIDINE GLUCONATE 2 % 1 PACK (2 CLOTHS) TOP PRN
[2016-11-09] MEDS ORDERED: MISCELLANEOUS NURSING INFORMATION XX SCH
[2016-11-09] MEDS ORDERED: ACETAMINOPHEN/HYDROcodone 325 MG/5 MG TAB PO PRN
[2016-11-09] MEDS ORDERED: SODIUM CHLORIDE 0.9% FLUSH 5 ML FLUSH IVF PRN
[2016-11-09 00:05] VITALS: O2SAT 96
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
[2016-11-09] MEDS ORDERED: hydrOXYzine HCL 50 MG TAB PO PRN (00:45)
[2016-11-09] MEDS: LACTATED RINGER'S 1000 ML INJ 1,000 ML IV SCH ×2 (00:53→09:06)
[2016-11-09 02:30] VITALS: BP 126/73; PULSE 78; RESP 17; TEMP 97.5; O2SAT 98
[2016-11-09] MEDS: ACETAMINOPHEN/HYDROcodone 325 MG/5 MG TAB PO PRN ×4 (02:38→21:20)
[2016-11-09] MEDS: CHLORHEXIDINE GLUCONATE 2 % 1 PACK (2 CLOTHS) TOP SCH (04:00)
[2016-11-09 06:00] LABS: BASOPHIL # 0.1 TH/MM3 (0-0.2); BASOPHIL % 0.5 % (0.0-2.0); EOSINOPHIL # 0.4 TH/MM3 (0-0.4); EOSINOPHIL % 3.5 % (0.0-4.0); HEMATOCRIT 34.3 % (35.0-46.0); HEMO FLAGS DIFF FINAL; LYMPH % 22.5 % (9.0-44.0); LYMPHOCYTE # 2.5 TH/MM3 (1.0-4.8); MEAN CELL VOLUME 82.6 FL (80.0-100.0); MEAN CORPUSCULAR HEMOGLOBIN 28.4 PG (27.0-34.0); MEAN CORPUSCULAR HGB CONC 34.4 % (32.0-36.0); MONO % 9.3 % (0.0-8.0); NEUT % 64.2 % (16.0-70.0); PLATELET COUNT 226 TH/MM3 (150-450); RED BLOOD COUNT 4.16 MIL/MM3 (4.00-5.30)
[2016-11-09 06:19] LABS: BICARBONATE 29.1 MEQ/L (21.0-32.0); POTASSIUM 4.2 MEQ/L (3.5-5.1)
[2016-11-09 08:00] VITALS: BP 107/64; PULSE 78; RESP 18; TEMP 96.9; O2SAT 96
[2016-11-09] MEDS: FAMOTIDINE 20 MG TAB PO SCH ×2 (08:49→21:20)
[2016-11-09] MEDS: DOCUSATE SODIUM 100 MG CAP PO SCH ×2 (08:49→21:00)
[2016-11-09] MEDS: clonazePAM 0.5 MG TAB PO SCH ×2 (08:50→21:20)
[2016-11-09] MEDS: FLUoxetine HCL 20 MG CAP PO SCH (08:50)
[2016-11-09] MEDS: GABAPENTIN 300 MG CAP PO SCH ×3 (08:50→17:41)
[2016-11-09] MEDS ORDERED: LACTULOSE SYRUP 20 GM/30 ML CUP PO ONE (09:00)
--- NOTE | 2016-11-09 11:45 | EKG ---
Date Performed: 11/08/2016 Time Performed: 21:29:34 PTAGE: 36 years EKG: Sinus rhythm NORMAL ECG PREVIOUS TRACING : 11/02/2016 12.00 DOCTOR: Js Patricia Interpretating Date/Time 11/09/2016 11:43:00
[2016-11-09 12:00] VITALS: BP 107/67; PULSE 69; RESP 18; TEMP 97.2; O2SAT 100
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
--- NOTE | 2016-11-09 13:18 | HHI.PR ---
Subjective Subjective Notes Pain controlled. Wants to go home. Objective Vitals/I&O Vital Signs Date Time Temp Pulse Resp B/P Pulse Ox O2 Delivery O2 Flow Rate FiO2 11/09/16 08:00 96.9 78 18 107/64 96 11/08/16 23:44 Room Air Labs Laboratory Tests Test 11/08/16 11/09/16 20:37 05:32 White Blood Count 11.3 11.0 Red Blood Count 4.27 4.16 Hemoglobin 11.9 11.8 Hematocrit 34.9 34.3 Mean Corpuscular Volume 81.8 82.6 Mean Corpuscular Hemoglobin 27.9 28.4 Mean Corpuscular Hemoglobin 34.1 34.4 Concent Red Cell Distribution Width 14.0 14.0 Platelet Count 120 226 Mean Platelet Volume 8.2 9.0 Neutrophils (%) (Auto) 68.5 64.2 Lymphocytes (%) (Auto) 19.7 22.5 Monocytes (%) (Auto) 8.3 9.3 Eosinophils (%) (Auto) 3.0 3.5 Basophils (%) (Auto) 0.5 0.5 Neutrophils # (Auto) 7.7 7.0 Lymphocytes # (Auto) 2.2 2.5 Monocytes # (Auto) 0.9 1.0 Eosinophils # (Auto) 0.3 0.4 Basophils # (Auto) 0.1 0.1 CBC Comment DIFF FINAL DIFF FINAL Differential Comment Prothrombin Time 11.1 Prothromb Time International 1.0 Ratio Activated Partial 24.3 Thromboplast Time Urine Color LIGHT-RED Urine Turbidity CLEAR Urine pH 8.0 Urine Specific [place] 1.004 Urine Protein 100 Urine Glucose (UA) NEG Urine Ketones NEG Urine Occult Blood LARGE Urine Nitrite NEG Urine Bilirubin NEG Urine Urobilinogen LESS THAN 2.0 Urine Leukocyte Esterase SMALL Urine RBC 4 Urine WBC 6 Urine Squamous Epithelial 1 Cells Microscopic Urinalysis Comment CULT NOT INDICATED Sodium Level 141 138 Potassium Level 3.8 4.2 Chloride Level 105 102 Carbon Dioxide Level 29.8 29.1 Anion Gap 6 7 Blood Urea Nitrogen 4 10 Creatinine 0.63 0.80 Estimat Glomerular Filtration 106 80 Rate Random Glucose 83 104 Calcium Level 8.2 8.6 Total Bilirubin 0.2 Aspartate Amino Transf 49 (AST/SGOT) Alanine Aminotransferase 78 (ALT/SGPT) Alkaline Phosphatase 126 Total Protein 7.2 Albumin 3.7 Ethyl Alcohol Level 85 Radiology Last Impressions Tibia/Fibula X-Ray 11/08/162013 Signed Impressions: Service Date/Time: Tuesday, November 08, 2016 21:00 - CONCLUSION: Unremarkable examination of the left tibia. Musa Banuelos MD Radius/Ulna X-Ray 11/08/162013 Signed Impressions: Service Date/Time: Tuesday, November 08, 2016 20:56 - CONCLUSION: Unremarkable examination of the left forearm. Musa Banuelos MD Humerus X-Ray 11/08/162013 Signed Impressions: Service Date/Time: Tuesday, November 08, 2016 20:58 - CONCLUSION: Unremarkable examination of the left humerus. Musa Banuelos MD Hip and Pelvis X-Ray 11/08/162013 Signed Impressions: Service Date/Time: Tuesday, November 08, 2016 21:05 - CONCLUSION: Unremarkable examination of the left hip. Musa Banuelos MD Head CT 11/08/162013 Signed Impressions: Service Date/Time: Tuesday, November 08, 2016 21:51 - CONCLUSION: Normal examination. Musa Banuelos MD Chest X-Ray 11/08/162013 Signed Impressions: Service Date/Time: Tuesday, November 08, 2016 20:54 - CONCLUSION: No acute disease. Musa Banuelos MD Chest CT 11/08/162013 Signed Impressions: Service Date/Time: Tuesday, November 08, 2016 21:56 - CONCLUSION: No acute disease. Musa Banuelos MD Cervical Spine CT 11/08/162013 Signed Impressions: Service Date/Time: Tuesday, November 08, 2016 21:51 - CONCLUSION: Moderate degenerative disc disease. Slight reversal of normal cervical lordosis. No acute fracture. Musa Banuelos MD Abdomen/Pelvis CT 11/08/162013 Signed Impressions: Service Date/Time: Tuesday, November 08, 2016 21:56 - CONCLUSION: 1. No acute findings. Mild constipation. Previous cholecystectomy. Musa Banuelos MD Narrative Exam GENERAL: 36 year old well-nourished, well developed female lying in bed. SKIN: Warm and dry. ENT: No nasal bleeding or discharge. Mucous membranes pink and moist. NECK: Trachea midline. No JVD. CARDIOVASCULAR: Regular rate and rhythm. RESPIRATORY: No accessory muscle use. Lungs clear to auscultation. Breath sounds equal bilaterally. GASTROINTESTINAL: Abdomen soft, non-tender, nondistended. + BS. F/C in place with pink tinged urine noted. MUSCULOSKELETAL: Extremities without cyanosis, or edema. No obvious deformities. NEUROLOGICAL: Awake and alert. Normal speech. A/P Assessment and Plan INJURIES: Renal contusion with chapo hematuria PMHx: Bipolar, Seizure disorder, Anxiety, CVA, GERD, HTN, Hypothyroid Diet: Regular and tolerating. Pulmonary: IS Pain: Neurontin, [place], Klonopin. Pain controlled. Activity: BR, PT evaluating. GI: Pepcid Bowel: Colace, MOM. Lactulose x1 today. DVT: SCD Urology consulted for chapo hematuria. CT cystogram today. Patient will be discharged home when cleared by urology. Plan of care discussed with patient at bedside. Che Wu Nov 09, 2016 13:18
[2016-11-09 16:00] VITALS: BP 133/82; PULSE 76; RESP 18; TEMP 97.7; O2SAT 98
[2016-11-09] MEDS ORDERED: IOHEXOL 350 MG/ML 10 ML VIAL (for RAD DIAG) IV ONE (16:46)
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
[2016-11-09 20:00] VITALS: BP 122/72; PULSE 75; RESP 16; TEMP 97.7; O2SAT 98
[2016-11-10] VITALS: BP 123/78; PULSE 74; RESP 17; TEMP 96.9; O2SAT 96
[2016-11-10] MEDS: CHLORHEXIDINE GLUCONATE 2 % 1 PACK (2 CLOTHS) TOP SCH ×2 (04:00→22:07)
[2016-11-10] MEDS: LACTATED RINGER'S 1000 ML INJ 1,000 ML IV SCH ×3 (05:47→22:07)
[2016-11-10 08:00] VITALS: BP 95/59; PULSE 68; RESP 18; TEMP 96.8; O2SAT 96
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
[2016-11-10] MEDS: FAMOTIDINE 20 MG TAB PO SCH ×2 (09:27→22:07)
[2016-11-10] MEDS: FLUoxetine HCL 20 MG CAP PO SCH (09:27)
[2016-11-10] MEDS: ACETAMINOPHEN/HYDROcodone 325 MG/5 MG TAB PO PRN ×4 (09:27→22:06)
[2016-11-10] MEDS: GABAPENTIN 300 MG CAP PO SCH ×3 (09:27→17:40)
[2016-11-10] MEDS: DOCUSATE SODIUM 100 MG CAP PO SCH ×2 (09:27→22:06)
[2016-11-10] MEDS: clonazePAM 0.5 MG TAB PO SCH ×2 (09:27→22:07)
[2016-11-10 12:04] VITALS: BP 138/72; PULSE 79; RESP 18; TEMP 96.6; O2SAT 98
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
[2016-11-10 16:00] VITALS: BP 155/94; PULSE 70; RESP 18; TEMP 97; O2SAT 99
[2016-11-10 20:00] VITALS: BP 136/76; PULSE 78; RESP 16; TEMP 97.1; O2SAT 97
[2016-11-11] VITALS: BP 116/77; PULSE 73; RESP 17; TEMP 96.4; O2SAT 98
[2016-11-11 08:30] VITALS: PULSE 66; RESP 16; TEMP 98; O2SAT 98
[2016-11-11] MEDS: FAMOTIDINE 20 MG TAB PO SCH (09:23)
[2016-11-11] MEDS: ACETAMINOPHEN/HYDROcodone 325 MG/5 MG TAB PO PRN ×2 (09:23→14:24)
[2016-11-11] MEDS: FLUoxetine HCL 20 MG CAP PO SCH (09:23)
[2016-11-11] MEDS: clonazePAM 0.5 MG TAB PO SCH (09:23)
[2016-11-11] MEDS: DOCUSATE SODIUM 100 MG CAP PO SCH (09:24)
[2016-11-11] MEDS: GABAPENTIN 300 MG CAP PO SCH ×2 (09:24→14:25)
[2016-11-11] MEDS ORDERED: NORC5TAB PO (11:44)
[2016-11-11 12:00] VITALS: BP 129/71; PULSE 77; RESP 16; TEMP 97.4; O2SAT 98
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
== END 2016-11-11 16:21 | disposition home or self-care (01) | DRG 696 ==
LOC: NEPA 19:39 → NEDA 23:36 → OBSVTOIN 23:49 → N06A 11-09 02:45
PROVIDERS: ADMIT Surgery; ATTEND Surgery
DX: R31.0 Gross hematuria (principal); S37.012A Minor contusion of left kidney, initial encounter; I10 Essential (primary) hypertension; V09.9XXA Pedestrian injured in unspecified transport accident, initial encounter; Y92.410 Unspecified street and highway as the place of occurrence of the external cause; G40.909 Epilepsy, unspecified, not intractable, without status epilepticus; I34.1 Nonrheumatic mitral (valve) prolapse; F41.9 Anxiety disorder, unspecified; K21.9 Gastro-esophageal reflux disease without esophagitis; E03.9 Hypothyroidism, unspecified; Z86.73 Personal history of transient ischemic attack (TIA), and cerebral infarction without residual deficits; F17.200 Nicotine dependence, unspecified, uncomplicated; K59.00 Constipation, unspecified; F10.20 Alcohol dependence, uncomplicated; F14.90 Cocaine use, unspecified, uncomplicated; Y90.4 Blood alcohol level of 80-99 mg/100 ml; F20.9 Schizophrenia, unspecified; F31.9 Bipolar disorder, unspecified
CPT/HCPCS: 70450; 71010; 71260; 72125; 73030; 73060; 73090; 73502; 73590; 74177; 74178; 80048; 80053; 80320; 81001; 84703; 85025; 85610; 85730; 93005; 94150; 96374; J2270; J7120; Q9967

== ENCOUNTER 2017-01-04 13:45 | Emergency (ER) | payer SELFPAY ==
[~2017-01-04] VITALS: Ht 160 cm; Wt 51.0 kg
[~2017-01-04 13:45] MED LIST changes: +FERR83TA PO; -IRON28TA PO; +NORC5TAB PO
[2017-01-04 13:46] VITALS: BP 163/90; PULSE 80; RESP 20; TEMP 98.1; O2SAT 100
[2017-01-04] MEDS ORDERED: CEPH-460 PO (16:00)
[2017-01-04] MEDS ORDERED: predniSONE 20 MG TAB PO ONE (16:00)
[2017-01-04] MEDS ORDERED: BACT800T5 PO (16:00)
[2017-01-04] MEDS ORDERED: diphenhydrAMINE HCL 50 MG CAP PO ONE (16:00)
[2017-01-04] MEDS ORDERED: IBUP800T23 PO (16:00)
--- NOTE | 2017-01-04 16:00 | PD ---
HPI Chief Complaint: Skin Problem Time Seen by Provider: 15:57 Travel History International Travel<30 days: No Contact w/Intl Traveler<30days: No Traveled to known affect area: No History of Present Illness HPI 36-year-old female presents to the emergency Department with complaint of swelling around her left eye and left hand swelling since this morning at approximately 3 AM. Patient reports that prior to 3 AM she woke up with itching to her left eye and left hand and then when she woke up at 3 AM again with itching she noticed her eye and hand felt swollen. She thinks maybe she got bit by a bug. Denies fever, chills, nausea, vomiting. Denies change in vision, headache. Denies airway edema, stridor, shortness of breath. Denies paresthesias, loss of sensation, decreased range of motion, decreased into the affected extremity. Denies eye pain or hand pain. Reports areas are still itchy. Has not taken any medication or try any treatments to alleviate her symptoms. Allergies to BuSpar, conjunctiva, magnesium sulfate, orange, Phenergan, Risperdal. Is not up-to-date on her tetanus vaccination. No other modifying factors or associated signs and symptoms. 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21, "LEFT SIDE WEAKER THAN RIGHT") Diabetes: No Diminished Hearing: No Endocrine: No GERD: Yes Genitourinary: No Hepatitis: Yes (HEP C) Hiatal Hernia: No Hypertension: Yes Immune Disorder: No Musculoskeletal: No Neurologic: Yes Psychiatric: Yes Reproductive: No Respiratory: No Immunizations Current: Yes Migraines: Yes Radiation Therapy: No Schizophrenia: Yes Seizures: Yes Sleep Apnea: No Thyroid Disease: No Ulcer: No Tetanus Vaccination: > 5 Years PNEUMOCCOCAL Vaccine (Year): 2 ?: Not LMP: tubal : 6 Para: 3 Miscarriage: 2 : 1 Tubal Ligation: Yes Past Surgical History Abdominal Surgery: Yes (APPENDECTOMY, CHOLECYSCETOMY) Appendectomy: Yes Body Medical Devices: L 5TH FINGER UNABLE TO REMOVE RING Cardiac Surgery: No Cholecystectomy: Yes Ear Surgery: No Endocrine Surgery: No Eye Surgery: No Genitourinary Surgery: No Gynecologic Surgery: Yes (TUBAL LIGATION, LAPOROSCOPY) Neurologic Surgery: No Oral Surgery: No Thoracic Surgery: No Other Surgery: Yes Social History Alcohol Use: Yes Tobacco Use: Yes ("4 CIGS/DAY") Substance Use: Yes (MARAJUNA-3X A MONTH) Allergies-Medications (Allergen,Severity, Reaction): Coded Allergies: Buspar (Verified Allergy, Severe, 01/04/17) Cogentin (Verified Allergy, Severe, hives, 01/04/17) Magnesium Sulfate (Verified Allergy, Severe, Vertigo, 01/04/17) [place] (Verified Allergy, Severe, hives, 01/04/17) Phenergan (Verified Allergy, Severe, 01/04/17) Risperdal (Verified Allergy, Severe, 01/04/17) Reported Meds & Prescriptions Reported Meds & Active Scripts Active Deltasone (Prednisone) 20 Mg Tab 40 Mg PO DAILY 4 Days start 01/05/2017 Ibuprofen 800 Mg Tab 800 Mg PO Q6HR PRN Bactrim DS (Sulfamethoxazole-Trimethoprim) 800-160 Mg Tab 1 Tab PO BID 10 Days Keflex (Cephalexin) 500 Mg Cap 500 Mg PO Q6H 10 Days [place] (Hydrocodone-Acetaminophen) 5-325 mg Tab 1-2 Tab PO Q6H PRN Hydroxyzine HCl 50 Mg Tab 50 Mg PO Q6H PRN 15 Days Neurontin (Gabapentin) 300 Mg Cap 300 Mg PO TID 15 Days Fluoxetine (Fluoxetine HCl) 20 Mg Cap 40 Mg PO DAILY 15 Days Klonopin (Clonazepam) 0.5 Mg Tab 0.5 Mg PO DAILY@09,13,21 15 Days Lipitor (Atorvastatin Calcium) 20 Mg Tab 20 Mg PO HS 15 Days Reported Ferrous Sulfate 27 Mg Tab 28 Mg PO DAILY Review of Systems Except as stated in HPI: all other systems reviewed are Neg Physical Exam Narrative GENERAL: Well-nourished, well-developed patient, in no acute distress; afebrile , nontoxic-appearing SKIN: Warm and dry. Dorsal aspect of left hand with edema; without erythema, warmth to touch. Left upper extremity supple and nontender 2+ radial pulse and sensory intact. HEAD: Atraumatic. Normocephalic. EYES: Pupils equal and round at 3 mm with brisk reaction. PERRLA. EOMI. No orbital tenderness, erythema or cellulitis. Left lower lid with mild edema and without erythema or warmth to touch. ENT: Mucosa pink and moist. Airway patent. NECK: Trachea midline. CARDIOVASCULAR: Regular rate. RESPIRATORY: No accessory muscle use. GASTROINTESTINAL: Flat. NEUROLOGICAL: Awake and alert. Oriented 3. No obvious cranial nerve deficits. Motor grossly within normal limits. Normal speech. PSYCHIATRIC: Appropriate mood and affect; insight and judgment normal. Data Data Last Documented VS Vital Signs Date Time Temp Pulse Resp B/P Pulse Ox O2 Delivery O2 Flow Rate FiO2 01/04/17 13:46 98.1 80 20 163/90 100 Room Air Orders Diphenhydramine (Benadryl) (01/04/17 16:00) Prednisone (Deltasone) (01/04/17 16:00) Tetanus/Diphtheria Tox Adult (Tetanus/Di (01/04/17 16:15) MDM Medical Decision Making Medical Screen Exam Complete: Yes Emergency Medical Condition: Yes Medical Record Reviewed: Yes Differential Diagnosis Allergic reaction, insect bite, cellulitis Narrative Course 36-year-old female with mild edema to her left lower lid and to the dorsal aspect of her left hand. She woke up this morning itching to both those areas and then again later in the morning and noticed the swelling. The left eye is without signs of orbital cellulitis. Tetanus updated in the ER. I will treat the patient for possible allergic reaction and cellulitis. Benadryl and Deltasone administered in the ER. Keflex, Bactrim, ibuprofen, Deltasone prescribed for home. Patient verbalizes understanding and agreement with treatment plan. Patient is medically cleared and stable for discharge. Discussed reasons to return to the emergency department. Instructed patient to follow up with primary care provider. Patient agrees with treatment plan. The patients vital signs are stable and the patient is stable for outpatient follow- up and treatment. Patient discharged home, stable and in no acute distress. Diagnosis Primary Impression: Eye swelling, left Additional Impression: Swelling of left hand Referrals: Primary Care Physician Patient Instructions: Cellulitis (ED), General Allergic Reaction (ED), General Instructions, Insect Bite or Sting (ED) Departure Forms: Tests/Procedures, Work Release Enter return to work date: Jan 05, 2017 Additional Instructions: Complete full course of antibiotics Warm compresses to the affected area Keep area clean and dry Ibuprofen or Tylenol as directed and as needed for pain and inflammation [id number] Benadryl as directed and as needed for itching Follow-up with primary care provider Return to emergency department immediately with worsening of symptoms Med/Other Pt SpecificInfo: Prescription(s) given Scripts Prednisone (Deltasone)20 Mg Tab40 Mg PO DAILY 4 Days Ref 0 start 01/05/2017 Prov:Wendy Sandhu 01/04/17 Ibuprofen 800 Mg [id number] Mg PO Q6HR PRN (PAIN) #30 TAB Ref 0 Prov:Wendy Sandhu 01/04/17 Sulfamethoxazole-Trimethoprim (Bactrim DS)800-160 Mg Tab1 Tab PO BID 10 Days Ref 0 Prov:Wendy Sandhu 01/04/17 Cephalexin (Keflex)500 Mg [id number] Mg PO Q6H 10 Days Ref 0 Prov:Wendy Sandhu 01/04/17 Disposition: 01 DISCHARGE HOME Condition: Stable Wendy Sandhu Jan 04, 2017 16:00
[2017-01-04] MEDS ORDERED: PRED-503 PO (16:02)
[2017-01-04] MEDS ORDERED: TETANUS/DIPHTHERIA TOXOID ADULT 0.5 ML VIAL IM ONE (16:15)
== END 2017-01-04 16:26 | disposition home or self-care (01) ==
LOC: NETRI 13:45
DX: H57.8 Other specified disorders of eye and adnexa (principal); M79.89 Other specified soft tissue disorders; I10 Essential (primary) hypertension; Z23 Encounter for immunization; Z72.0 Tobacco use
CPT/HCPCS: 90471; 90714; 99282; J7512; Q0163

== ENCOUNTER 2017-01-23 23:07 | Emergency (ER) | payer SELFPAY ==
[~2017-01-23] VITALS: Ht 160 cm; Wt 52.0 kg
[~2017-01-23 23:07] MED LIST changes: +BACT800T5 PO; +CEPH-460 PO; +IBUP800T23 PO; +PRED-503 PO
[2017-01-23 23:42] VITALS: BP 121/63; PULSE 83; RESP 16; TEMP 98.5; O2SAT 99
--- NOTE | 2017-01-23 23:45 | PD ---
HPI Chief Complaint: Syncope/Near-Syncope Time Seen by Provider: 23:37 Travel History International Travel<30 days: No Contact w/Intl Traveler<30days: No Traveled to known affect area: No History of Present Illness HPI 36-year-old female here with complaint of possible syncopal episode. Patient was with her boyfriend when she took "2 large hits of K2", and thereafter was unresponsive for approximately 20-30 seconds. When EMS arrived patient alert and oriented. She denies any headache, shortness of breath, palpitations, chest pain. Patient denies any other illicit drug use. Otherwise well recently. Blood glucose normal per EMS. 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21, "LEFT SIDE WEAKER THAN RIGHT") Diabetes: No Diminished Hearing: No Endocrine: No GERD: Yes Genitourinary: No Hepatitis: Yes (HEP C) Hiatal Hernia: No Hypertension: Yes Immune Disorder: No Musculoskeletal: No Neurologic: Yes Psychiatric: Yes Reproductive: No Respiratory: No Immunizations Current: Yes Migraines: Yes Radiation Therapy: No Schizophrenia: Yes Seizures: Yes Sleep Apnea: No Thyroid Disease: No Ulcer: No PNEUMOCCOCAL Vaccine (Year): 2 : 6 Para: 3 Miscarriage: 2 : 1 Tubal Ligation: Yes Past Surgical History Abdominal Surgery: Yes (APPENDECTOMY, CHOLECYSCETOMY) Appendectomy: Yes Body Medical Devices: L 5TH FINGER UNABLE TO REMOVE RING Cardiac Surgery: No Cholecystectomy: Yes Ear Surgery: No Endocrine Surgery: No Eye Surgery: No Genitourinary Surgery: No Gynecologic Surgery: Yes (TUBAL LIGATION, LAPOROSCOPY) Neurologic Surgery: No Oral Surgery: No Thoracic Surgery: No Other Surgery: Yes Social History Alcohol Use: Yes Tobacco Use: Yes ("4 CIGS/DAY") Substance Use: Yes (MARAJUNA-3X A MONTH) Allergies-Medications (Allergen,Severity, Reaction): Coded Allergies: Buspar (Verified Allergy, Severe, 01/23/17) Cogentin (Verified Allergy, Severe, hives, 01/23/17) Magnesium Sulfate (Verified Allergy, Severe, Vertigo, 01/23/17) Liberty (Verified Allergy, Severe, hives, 01/23/17) Phenergan (Verified Allergy, Severe, 01/23/17) Risperdal (Verified Allergy, Severe, 01/23/17) Reported Meds & Prescriptions Reported Meds & Active Scripts Active Ibuprofen 800 Mg Tab 800 Mg PO Q6HR PRN Bactrim DS (Sulfamethoxazole-Trimethoprim) 800-160 Mg Tab 1 Tab PO BID 10 Days Keflex (Cephalexin) 500 Mg Cap 500 Mg PO Q6H 10 Days Hydroxyzine HCl 50 Mg Tab 50 Mg PO Q6H PRN 15 Days Neurontin (Gabapentin) 300 Mg Cap 300 Mg PO TID 15 Days Fluoxetine (Fluoxetine HCl) 20 Mg Cap 40 Mg PO DAILY 15 Days Klonopin (Clonazepam) 0.5 Mg Tab 0.5 Mg PO DAILY@09,13,21 15 Days Lipitor (Atorvastatin Calcium) 20 Mg Tab 20 Mg PO HS 15 Days Reported Ferrous Sulfate 27 Mg Tab 28 Mg PO DAILY Review of Systems Except as stated in HPI: all other systems reviewed are Neg Physical Exam Narrative GENERAL: Well appearing female in no acute distress SKIN: Focused skin assessment warm/dry. HEAD: Normocephalic. EYES: Pupils equal and round. No scleral icterus. No injection or drainage. ENT: No nasal bleeding or discharge. Mucous membranes pink and moist. NECK: Supple CARDIOVASCULAR: Regular rate and rhythm. No murmur appreciated. RESPIRATORY: No accessory muscle use. Clear to auscultation. Breath sounds equal bilaterally. GASTROINTESTINAL: Abdomen soft, non-tender, nondistended. MUSCULOSKELETAL: No obvious deformities. No edema. NEUROLOGICAL: Awake and alert. No obvious cranial nerve deficits. Motor grossly within normal limits. Normal speech. PSYCHIATRIC: Appropriate mood and affect; insight and judgment normal. Data Data Last Documented VS Vital Signs Date Time Temp Pulse Resp B/P Pulse Ox O2 Delivery O2 Flow Rate FiO2 01/23/17 23:42 83 16 121/63 99 Orders Electrocardiogram (01/23/17 ) [facility] Medical Decision Making Medical Screen Exam Complete: Yes Emergency Medical Condition: Yes Medical Record Reviewed: Yes Differential Diagnosis 36-year-old female here with presyncopal episode after smoking K2. Differential includes syncope, arrhythmia, electrolyte abnormality, symptomatic anemia, vasovagal. Narrative Course Patient placed on monitor, IV had been established per EMS. Twelve-lead EKG shows sinus rhythm without notable ST or T-wave abnormalities and normal intervals. No evidence of prolonged QT, WPW, Brugada .Patient felt improved and is declining blood work at this time which I certainly think is reasonable given her presentation. Will be discharged home. Patient notes a history of HTN, has been out of her lisinopril recently and requests refill. Diagnosis Primary Impression: Syncope Qualified Code: R55 - Syncope, unspecified syncope type Additional Impressions: HTN (hypertension) Qualified Code: I10 - Essential hypertension Medication refill Referrals: [facility] call for appointment [facility] call for appointment Additional Instructions: Follow-up with primary care provider to establish care. Lisinopril is free at [facility]. Avoid substance abuse. Med/Other Pt SpecificInfo: Prescription(s) given Scripts Lisinopril 20 Mg Tab20 Mg PO DAILY #30 TAB Ref 0 Prov:Bel Quintana MD 01/23/17 Disposition: DISCHARGE HOME Condition: Stable Bel Quintana MD Jan 23, 2017 23:45
[2017-01-23] MEDS ORDERED: LISI-515 PO (23:53)
--- NOTE | 2017-01-24 13:31 | EKG ---
Date Performed: 01/23/2017 Time Performed: 23:45:22 PTAGE: 36 years EKG: Sinus rhythm POSSIBLE RIGHT VENTRICULAR CONDUCTION DELAY Compared to prior tracing no significant change BORDERLI NE ECG PREVIOUS TRACING : 11/08/2016 21.29 DOCTOR: Jordi Gunderson Interpretating Date/Time 01/24/2017 13:29:54
== END 2017-01-24 06:39 | disposition home or self-care (01) ==
LOC: NEPD 23:07
DX: R55 Syncope and collapse (principal); I10 Essential (primary) hypertension; R94.31 Abnormal electrocardiogram [ECG] [EKG]; Z76.0 Encounter for issue of repeat prescription; Z72.0 Tobacco use; Z86.59 Personal history of other mental and behavioral disorders; Z86.79 Personal history of other diseases of the circulatory system; Z87.19 Personal history of other diseases of the digestive system; Z86.19 Personal history of other infectious and parasitic diseases; Z86.69 Personal history of other diseases of the nervous system and sense organs
CPT/HCPCS: 93005

== ENCOUNTER 2018-02-22 15:09 | Emergency (ER) | payer SELFPAY ==
[~2018-02-22] VITALS: Ht 160 cm; Wt 51.0 kg
[~2018-02-22 15:09] MED LIST changes: +IBUP1TAB7 PO; -IBUP800T23 PO; +LISI-515 PO; -NORC5TAB PO; -PRED-503 PO
[2018-02-22 15:25] VITALS: BP 151/90; PULSE 93; RESP 18; TEMP 99; O2SAT 98
--- NOTE | 2018-02-22 17:39 | RADRPT ---
EXAM DATE: 02/22/2018 5:36 PM EDT AGE/SEX: 37 years / Female INDICATIONS: Laceration to 5th metatarsal on right foot, from hitting foot on trailer. CLINICAL DATA: This is the patient's initial encounter. Patient reports that signs and symptoms have been present for 1 day and indicates a pain score of 3/10. MEDICAL/SURGICAL HISTORY: None. None. COMPARISON: No prior [facility] exams available for comparison. FINDINGS: Bony structures are intact and in normal alignment. Osseous density is normal. Soft tiss ues are unremarkable. No radiopaque foreign bodies seen. CONCLUSION: No acute bony injury Electronically signed by: Sourav Jernigan MD 02/22/2018 5:38 PM EDT
[2018-02-22] MEDS ORDERED: IBUP-232 PO (17:54)
[2018-02-22] MEDS ORDERED: MUPI2%T TOPICAL (17:54)
[2018-02-22] MEDS ORDERED: BACT800T5 PO (17:54)
--- NOTE | 2018-02-22 18:01 | PD ---
HPI Chief Complaint: Skin Problem Time Seen by Provider: 16:49 Travel History International Travel<30 days: No Contact w/Intl Traveler<30days: No Traveled to known affect area: No History of Present Illness HPI 37-year-old female presents emergency department with injury to the right pinky toe. Patient states he stubbed it on a engine samantha last evening. She states minimal bleeding, but she has a "crack in her skin" at the base of the right fifth digit. She states pain in the base of the toe as well as into the lateral foot as well. She denies fever, chills, drainage, numbness, tingling, or other issues. She has difficulty ambulating secondary to the discomfort. Pain is currently 7 out of 10. She is worried about possible infection. She has multiple allergies, please see list per [facility] Past Medical History Arthritis: No Asthma: No Atrial Fibrillation: No Blood Disorders: No Bipolar Disorder: Yes Anxiety: Yes Depression: Yes Heart Rhythm Problems: No Cancer: No Cardiac Catheterization: Yes Cardiovascular Problems: Yes (MVP) High Cholesterol: No Chemotherapy: No Chest Pain: No Congestive Heart Failure: No COPD: No Cerebrovascular Accident: Yes (TIA) Diabetes: No Diminished Hearing: No Endocrine: No GERD: Yes Genitourinary: No Hepatitis: Yes (HEP C HAD TREATMENT STATES SHE NO LONGER HAS) Hiatal Hernia: No Hypertension: Yes Immune Disorder: No Musculoskeletal: No Neurologic: Yes Psychiatric: Yes Reproductive: No Respiratory: No Immunizations Current: Yes Migraines: Yes Radiation Therapy: No Schizophrenia: Yes Seizures: Yes Sleep Apnea: No Thyroid Disease: No Ulcer: No Tetanus Vaccination: < 5 Years Influenza Vaccination: No PNEUMOCCOCAL Vaccine (Year): 2 ?: Not LMP: 02/15/18 : 6 Para: 3 Miscarriage: 2 : 1 Tubal Ligation: Yes Past Surgical History Abdominal Surgery: Yes (APPENDECTOMY, CHOLECYSCETOMY) Appendectomy: Yes Body Medical Devices: L 5TH FINGER UNABLE TO REMOVE RING Cardiac Surgery: No Cholecystectomy: Yes Ear Surgery: No Endocrine Surgery: No Eye Surgery: No Genitourinary Surgery: No Gynecologic Surgery: Yes (LAPOROSCOPY) Neurologic Surgery: No Oral Surgery: No Thoracic Surgery: No Other Surgery: Yes Social History Alcohol Use: Yes Tobacco Use: Yes (10/07 PPD) Substance Use: Yes (MARAJUNA-3X A MONTH) Allergies-Medications (Allergen,Severity, Reaction): Coded Allergies: benztropine (Unverified Allergy, Severe, hives, 02/22/18) buspirone (Unverified Allergy, Severe, 02/22/18) magnesium (Unverified Allergy, Severe, Vertigo, 02/22/18) magnesium sulfate (Unverified Allergy, Severe, Vertigo, 02/22/18) orange (Unverified Allergy, Severe, hives, 02/22/18) promethazine (Unverified Allergy, Severe, 02/22/18) risperidone (Unverified Allergy, Severe, 02/22/18) Reported Meds & Prescriptions Reported Meds & Active Scripts Active Ibuprofen 600 Mg Tab 600 Mg PO Q6H PRN Bactroban Topical (Mupirocin) 22 Gm Cream 1 Applic TOPICAL BID Bactrim DS (Sulfamethoxazole-Trimethoprim) 800-160 Mg Tab 1 Tab PO BID Lisinopril 20 Mg Tab 20 Mg PO DAILY Ibuprofen 800 Mg Tab 800 Mg PO Q6HR PRN Bactrim DS (Sulfamethoxazole-Trimethoprim) 800-160 Mg Tab 1 Tab PO BID 10 Days Keflex (Cephalexin) 500 Mg Cap 500 Mg PO Q6H 10 Days Hydroxyzine HCl 50 Mg Tab 50 Mg PO Q6H PRN 15 Days Neurontin (Gabapentin) 300 Mg Cap 300 Mg PO TID 15 Days Fluoxetine (Fluoxetine HCl) 20 Mg Cap 40 Mg PO DAILY 15 Days Klonopin (Clonazepam) 0.5 Mg Tab 0.5 Mg PO DAILY@09,13,21 15 Days Lipitor (Atorvastatin Calcium) 20 Mg Tab 20 Mg PO HS 15 Days Reported Ferrous Sulfate 27 Mg Tab 28 Mg PO DAILY Review of Systems Except as stated in HPI: all other systems reviewed are Neg General / Constitutional: No: Fever Eyes: No: Visual changes HENT: No: Headaches Cardiovascular: No: Chest Pain or Discomfort Respiratory: No: Shortness of Breath Gastrointestinal: No: Abdominal Pain Genitourinary: No: Dysuria Musculoskeletal: Positive: Arthralgias, Limited ROM, Pain Skin: Positive Lesions (See history of present illness see history of present illness), No Rash Neurologic: No: Weakness Psychiatric: No: Depression Endocrine: No: Polydipsia Hematologic/Lymphatic: No: Easy Bruising Physical Exam Narrative GENERAL: Patient appears in mild to moderate distress per SKIN: Warm and dry. Normal color. Normal turgor. No signs of trauma. Patient has superficial laceration across the base of the right fifth digit, without signs of cellulitis, drainage, or significant bleeding. It does not appear amenable to closure at this point HEAD: Atraumatic. Normocephalic. EYES: Pupils equal and round. No scleral icterus. No injection or drainage. ENT: No nasal bleeding or discharge. Mucous membranes pink and moist. NECK: Trachea midline. No JVD. CARDIOVASCULAR: Regular rate and rhythm. RESPIRATORY: No accessory muscle use. Clear to auscultation. Breath sounds equal bilaterally. GASTROINTESTINAL: Abdomen soft, non-tender, nondistended. Hepatic and splenic margins not palpable. MUSCULOSKELETAL: Extremities without clubbing, cyanosis, or edema. No obvious deformities. Patient has tenderness with palpation to the right pinky toe and lateral distal right foot. No crepitus is noted. No bruising is noted. NEUROLOGICAL: Awake and alert. No obvious cranial nerve deficits. Motor grossly within normal limits. Five out of 5 muscle strength in the arms and legs. Normal speech. PSYCHIATRIC: Appropriate mood and affect; insight and judgment normal. Data Data Last Documented VS Vital Signs Date Time Temp Pulse Resp B/P (MAP) Pulse Ox O2 Delivery O2 Flow Rate FiO2 02/22/18 15:25 99.0 93 18 151/90 (110) 98 Orders Orders Foot, Limited (2vws) (02/22/18 17:14) Ice/Cold Pack (02/22/18 17:14) Wound Care (02/22/18 17:51) Splint Or Brace Apply/Monitor (02/22/18 17:51) Crutches (02/22/18 17:51) [facility] Medical Decision Making Medical Screen Exam Complete: Yes Emergency Medical Condition: Yes Differential Diagnosis Right foot contusion. Superficial laceration. Fracture. Narrative Course X-ray of the right foot is ordered. Ice is applied to the injured area X-ray showed no acute fracture or dislocation. Patient will be placed in a postop shoe after the wound is dressed as it does not warrant closure at this time. Patient is given crutches to assist with ambulation. Patient is started on Bactrim DS twice daily 7 days. Patient is also started on Bactroban to the wound site twice daily for the next week. Patient is given ibuprofen 600 mg 4 times daily #40 for pain and swelling. Patient is to follow-up with her primary care physician or return to ED if symptoms do not improve or worsen. Diagnosis Primary Impression: Contusion of right foot including toes Qualified Codes: S90.31XA - Contusion of right foot, initial encounter; S90.121A - Contusion of right lesser toe(s) without damage to nail, initial encounter Additional Impression: Laceration of fifth toe of right foot Qualified Codes: S91.114A - Laceration without foreign body of right lesser toe(s) without damage to nail, initial encounter Referrals: Primary Care Physician Patient Instructions: Contusion in Adults (ED), General Instructions, Laceration Without Closure (ED) Additional Instructions: X-ray showed no acute fracture or dislocation. Patient will be placed in a postop shoe after the wound is dressed as it does not warrant closure at this time. Patient is given crutches to assist with ambulation. Patient is started on Bactrim DS twice daily 7 days. Patient is also started on Bactroban to the wound site twice daily for the next week. Patient is given ibuprofen 600 mg 4 times daily #40 for pain and swelling. Patient is to follow-up with her primary care physician or return to ED if symptoms do not improve or worsen. Med/Other Pt SpecificInfo: Prescription(s) given Scripts Ibuprofen (Ibuprofen) 600 Mg Tab 600 MG PO Q6H Y for Pain/Inflammation, #40 TAB 0 Refills Prov: Chandler Ortiz MD 02/22/18 Mupirocin Topical (Bactroban Topical) 22 Gm Cream 1 APPLIC TOPICAL BID for Mgmt Bacterial Infection, #1 TUBE 0 Refills Prov: Chandler Ortiz MD 02/22/18 Sulfamethoxazole-Trimethoprim (Bactrim DS) 800-160 Mg Tab 1 TAB PO BID for Infection, #14 TAB 0 Refills Prov: Chandler Ortiz MD 02/22/18 Disposition: 01 DISCHARGE HOME Condition: Stable Ritchie Rangel February 22, 2018 18:00
== END 2018-02-22 19:55 | disposition home or self-care (01) ==
LOC: NEPD 15:09
DX: S90.121A Contusion of right lesser toe(s) without damage to nail, initial encounter (principal); S91.114A Laceration without foreign body of right lesser toe(s) without damage to nail, initial encounter; W22.8XXA Striking against or struck by other objects, initial encounter
CPT/HCPCS: 73620; 99283; E0113; L3260